=== PATIENT | male | born 1965 | race Caucasian/White ===

== ENCOUNTER 2018-03-13 16:58 | Observation (INO) | payer BC ==
[~2018-03-13] VITALS: Ht 180.3 cm; Wt 79.5 kg
--- NOTE | ~2018-03-13 | DS ---
PATIENT:MYKEL SINGH :63 MEDICAL RECORD: [id number] DISCHARGE SUMMARY ADMISSION DATE: 03/14/18 DISCHARGE DATE: 03/15/18 DATE OF ADMISSION: 03/14/2018 DATE OF DISCHARGE: 03/15/2018 ADMISSION DIAGNOSIS: Acute appendicitis with localized peritonitis. DISCHARGE DIAGNOSIS: Acute appendicitis with localized peritonitis. PROCEDURE: Laparoscopic appendectomy on 03/14/2018. CONSULTATIONS: None. REPORT OF HOSPITALIZATION: The patient was admitted through the Emergency Room with CT-guided findings of acute appendicitis. The patient was given IV antibiotics in the ER and sent to the operating room for a laparoscopic appendectomy. The surgery was successful and postoperatively he did well. He had no problems through the evening and that following morning he was set up for discharge home. DISCHARGE INSTRUCTIONS: To return to clinic or call with any questions or concerns, fevers, chills, nausea, vomiting or worsening abdominal pain. ACTIVITIES: No heavy lifting or straining for 2 weeks. FOLLOWUP: In clinic with me in 2 to 3 weeks. DISCHARGE MEDICATIONS: [place] 10. TRANSINT:[id number] Voice Confirmation ID: [id number] DOCUMENT ID: [id number] CURT VELEZ MD at 0918 CC: [id number] DICTATION DATE: 03/29/18 0804 TECHNICAL SOURCING RECRUITER: 03/29/18 0815 DIS IN 03/15/[address] [id number]
--- NOTE | ~2018-03-13 | OP ---
PATIENT NAME: MYKEL SINGH MEDICAL RECORD: [id number] :63 LOCATION:[id number] ADMISSION DATE:03/14/18 SURGEON: MATTEO VELEZ MD DATE OF OPERATION: 03/14/2018 PREOPERATIVE DIAGNOSIS: Acute appendicitis with localized peritonitis. POSTOPERATIVE DIAGNOSIS: Acute appendicitis with localized peritonitis. PROCEDURE: Laparoscopic appendectomy. SURGEON: Matteo Velez MD REPORT OF PROCEDURE: The patient's abdomen was prepped and draped in sterile fashion. A cutdown was made on the superior aspect of the umbilicus, 0 Vicryls were placed on the fascia bilaterally and the fascia was incised with a 15-blade. I then bluntly entered the peritoneal cavity and placed a 12-mm Gina port. Under direct visualization, a 5 mm trocar was placed in the left lower quadrant and another was placed in the suprapubic region. The patient's right lower quadrant was inspected and an inflamed appendix was then visualized and there were no signs of gangrene or perforation. The appendix was elevated. A window was made at the base of the appendix between the base of the appendix and the mesoappendix. The mesoappendix was transected with a 45 white load Endo-JEAN stapler. At this point, the base of the appendix was then transected with a 45 blue load Endo-JEAN stapler. The appendix was placed into an Endo Catch bag. We then irrigated out the right lower quadrant and assured there was no sign of any bleeding or leakage. At this point, the ports and insufflation were then removed and the appendix was taken out through the umbilicus. The umbilical fascia was closed with interrupted 0 Vicryls times 3. The wounds were then irrigated out with normal saline, infused with 10 mL of 0.25% Marcaine with epinephrine. The skin incisions were all closed with subcutaneous 5-0 Monocryl and dressed appropriately. COMPLICATIONS: None. CONDITION: Stable. ANESTHESIA: General endotracheal and local. BLOOD LOSS: Minimal. TRANSINT:[id number] Voice Confirmation ID: [id number] DOCUMENT ID: [id number] OPERATIVE REPORT [id number] MYKEL SINGH MATTEO VELEZ MD at 0805 CC: [id number] DICTATION DATE: 03/14/182031 CEMENT TRUCK LOADER: 03/14/[address] [facility] [address] [id number]
[2018-03-13 18:13] LABS: BASOPHILS 0.2 % (0-2); EOSINOPHILS 0.1 % (0-7); HEMOGLOBIN 14.9 g/dL (13.5-17.5); IMMATURE GRANULOCYTES 0.3 % (0-5); LYMPHOCYTES 5.6 % (15-50); MCH 32.7 pg (26.0-34.0); MCHC 34.7 g/dL (31.0-37.0); MCV 94.3 fL (80.0-100.0); MEAN PLATELET VOLUME 11.4 fL (7.4-10.4); MONOCYTES 8.3 % (2-11); NEUTROPHILS 85.5 % (40-80); PLATELET COUNT 207 10x3/uL (130-400); RBC 4.56 10x6/uL (4.20-6.10); RDW 12.1 % (11.5-14.5); WBC 19.2 10x3/uL (4.8-10.8)
[2018-03-13 18:44] LABS: ALBUMIN 4.3 g/dL (3.4-5.0); ANION GAP 11.7 mmol/L (8-16); BILIRUBIN - TOTAL 0.61 mg/dL (0.2-1.3); CALCIUM 8.9 mg/dL (8.5-10.1); CARBON DIOXIDE 28.5 mmol/L (21.0-32.0); CREATININE - SERUM 1.1 mg/dL (0.6-1.3); POTASSIUM - SERUM 4.2 mmol/L (3.5-5.1); PROTEIN - SERUM 8.1 g/dL (6.4-8.2)
[2018-03-13 21:16] LABS: APPEARANCE CLEAR (CLEAR); BILIRUBIN NEGATIVE (NEGATIVE); COLOR YELLOW (YELLOW); GLUCOSE NEGATIVE (NEGATIVE); KETONE NEGATIVE (NEGATIVE); NITRITE NEGATIVE (NEGATIVE); PROTEIN NEGATIVE (NEGATIVE); UROBILINOGEN NORMAL (NORMAL)
[2018-03-14] VITALS (14 sets, daily range): BP systolic 110–133; BP diastolic 69–85; Ht 180.3 cm; Wt 79.5 kg
[2018-03-15 04:00] VITALS: BP 109/73
[2018-03-15] MEDS ORDERED: HYDROCODONE-APA1 TAB PO (08:04)
[2018-03-15 09:10] VITALS: BP 126/72
[2018-03-15 12:22] VITALS: BP 94/54
== END 2018-03-15 13:45 | disposition home or self-care (01) ==
LOC: D.ER 16:58 → D.EDHOLD 03-14 04:11 → D.MS 03-14 04:11 → OBSVTIME 03-14 04:11 → D.MS 03-14 18:25
PROVIDERS: Family Medicine
DX: K35.3 Acute appendicitis with localized peritonitis (principal)